=== PATIENT | female | born 1940 | race Caucasian/White ===

== ENCOUNTER 2018-02-12 14:05 | Day surgery (SDC) | payer MEDICARE, MEDICAID, SELFPAY ==
--- NOTE | 2018-02-08 15:15 | PM.PREOP ---
Pre-operative Note Interval Note Pre-op Check: Yes History & Physical Reviewed by Physician Changes: No
--- NOTE | 2018-02-08 15:19 | P.OP_ITS ---
Operative Date/Time/Diagnoses Date of procedure: 02/12/18 Time of procedure: 15:00 Procedure & Clinicians Same procedure as scheduled: Yes Indications: Date of service: February 12 Preoperative diagnoses: 1. 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 Need for capsular dye. Complex. 2. Advanced pseudoexfoliation. 3. Arthritis. Postoperative diagnoses: 1. 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 Phone consultation with Dr. Court Salinas. Left peripheral cortex. No IOL. No vitreous loss. Specimen: None Implant:None Blood loss: None Anesthesia: Retrobulbar with monitored standby Anesthesiologist: Danial Pradhan M.D. Description of procedure: Patient is a 77 year old female with decreased vision due to cataract which is affecting activities of daily living. She wants surgery to improve vision. 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 She was taken to the operating room and given IV sedation. A retrobulbar block insert consisting of 6 cc of 2% xylocaine without epinephrine mixed half and half with 0.5% Marcaine with 1 cc of hyaluronidase added is placed between the medial and lateral 1/3 of the inferior orbital rim. Lid akinesia is obtain with 1% xylocaine with epinephrine infiltrated along the lid margin. The eye is manually massaged for 30 sec, prepped using Betadine solution, and draped in the usual sterile fashion. 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 She is prepped and draped in the usual sterile fashion. A lid speculum was placed. A side-port incision was placed at the 7:30 position. Phenylephrine lidocaine 0.2 cc placed into the anterior chamber. An air bubble was placed and then Visudyne dyne placed to improve visibility. Healon followed by Viscoat was then used. A 2.6 mm incision was placed at the 170 degree meridian. A 360 degree capsulorrhexis style capsulotomy of 5.5 mm was then made using a cystotome with Healon. It was well centered with intact zonules at this point in the procedure. Gentle hydrodissection and hydrodelineation were performed. The phacoemulsification unit was introduced and a deep central groove was placed. Viscoelastic was then used to elevate each justin nuclei into the anterior chamber where it was removed with phacoemulsification. It was noted during this that the zonules were extremely unstable. And that the capsulorrhexis was slightly de centered ring towards the 3 o'clock position. As no vitreous was present the peripheral cortex was left in position and consultation with Dr. Pickering by phone performed. He recommended discontinuing the procedure at this point removing the viscoelastic and placing a suture. This would allow better placement of a scleral fixated stabilizing lens and she otherwise would have significant complications with a posterior chamber intraocular lens or require an anterior chamber intraocular lens. As the capsule was still intact trying for a secondary fixated lens was the better procedure and she agreed. After removing gently some viscoelastic a 10.o suture buried was placed at the temporal incision even though the wound was without leak prior to that. Vigamox was placed into the anterior chamber. A drop of ofloxacin 1 drop of timolol and Maxitrol ointment was placed into the and the eye was patched and shielded. The patient was stable and returned to the recovery room in excellent condition. However, she will need another procedure to remove the peripheral cortex and place a scleral fixation lens in the posterior chamber. No vitreous was present at the end of the case. Dr. Salinas will call the patient to schedule evaluation next Saturday. Dictated by: Marleny Bran MD Copy to: [facility] Copy to: Dr. Will Salinas. Click Yes if Unassisted: Yes
[2018-02-12] MEDS: PROPARACAINE 0.5% OPHTH SOL 2 DROPS EYE-OP (14:27)
[2018-02-12] MEDS: CATARACT EYE COMPOUND (10 DROPS/SYRINGE) 3 DROPS EYE-OP (14:28)
[2018-02-12 14:39] VITALS: BP 104/71; PULSE 81; RESP 15; TEMP 36.6; O2SAT 94; BMI 26.2
--- NOTE | 2018-02-12 15:25 | SUR.OPER ---
Supine on eye stretcher, head on extension cradle secured with tape. Arms tucked at sides with blanket. Pillow under knees.
[2018-02-12] MEDS: BALANCED SALT IRRIG SOLN NO.2 15 ML IRRIG.SOLN IRR (15:34)
[2018-02-12] MEDS: HYALURONATE SODIUM 10 MG/ML SYRINGE INJ (15:35)
[2018-02-12] MEDS: CHONDROIDTIN/SOD HYALURONATE 1.05 ML SYRINGE INTRAOCULA (15:35)
[2018-02-12] MEDS: CARBACHOL 1.5 ML VIAL INJ (15:35)
[2018-02-12] MEDS: LIDOCAINE 1% W/EPI INJ 20 ML INJ (15:36)
[2018-02-12] MEDS: NEOMYCIN/POLY/DEX OPHTH OINT 1 APPLIC EYE-RIGHT (15:36)
[2018-02-12] MEDS: MOXIFLOXACIN OPHTH DROPS 3 ML BOTTLE 2 DROPS INJ (15:36)
[2018-02-12] MEDS: PHENYLEPHRINE/LIDOCAINE 3ML VIAL (OR) EYE-OP (15:37)
[2018-02-12] MEDS: OFLOXACIN 0.3% OPHTH 5 ML 2 DROPS EYE-RIGHT (15:37)
[2018-02-12] MEDS: TRYPAN BLUE 0.5 ML SYRINGE INJ (15:38)
[2018-02-12] MEDS: BALANCED SALT IRRIG SOLN NO.2 500 ML, EPINEPHrine 1 MG IRR (15:38)
[2018-02-12] MEDS: LIDOCAINE 2% 4 ML, BUPIVACAINE 0.5% (PF) 4 ML, HYALURONIDASE 150 UNIT INJ (15:39)
[2018-02-12] MEDS: TIMOLOL 0.5% OPHTH 2 DROPS EYE-RIGHT (16:11)
[2018-02-12 16:20] VITALS: BP 145/87; PULSE 66; RESP 16; TEMP 36.2; O2SAT 100
== END 2018-02-12 16:51 | disposition home or self-care (01) ==
PROVIDERS: Visit Provider Ophthalmology
DX: H25.11 Age-related nuclear cataract, right eye (principal); H26.8 Other specified cataract
CPT/HCPCS: J0171; J2704; J3301; J3470